=== PATIENT | female | born 1980 | race Caucasian/White ===

== ENCOUNTER → 2023-11-05 10:35 | Outpatient (CLI) | payer OTHER, SELFPAY ==
--- NOTE | 2023-11-05 10:49 | DI.RAD.S_ITS ---
PROCEDURE: XR CERVICAL SPINE 2V OR 3V INDICATIONS: PAIN IN RIGHT SHOULDER TECHNIQUE: 3 view(s) of the cervical spine were acquired. COMPARISON: None. FINDINGS: Bones: No fractures or dislocations to the T1 level. The lateral masses of C1 appear intact on the odontoid view. No suspicious bony lesions. Mild degenerative grade 1 anterior spondylolisthesis C3-4 Soft tissues: No prevertebral soft tissue swelling. IMPRESSION: Mild degenerative C3-4 anterior spondylolisthesis Approved by: Jeffrey Fernandez M.D. on 11/05/2023 at 19:15
--- NOTE | 2023-11-05 10:49 | DI.RAD.S_ITS ---
PROCEDURE: XR SHOULDER RT MIN 2V INDICATIONS: PAIN IN RIGHT SHOULDER TECHNIQUE: 3 views of the shoulder were acquired. COMPARISON: None. FINDINGS: Bones: No fractures or dislocations. No suspicious bony lesions. Visualized ribs appear intact. Soft tissues: No suspicious soft tissue calcifications. IMPRESSION: Normal right shoulder radiographs Approved by: Jeffrey Fernandez M.D. on 11/05/2023 at 19:16
== END ==
PROVIDERS: PCP Family Medicine; Referring Provider Internal Medicine Cardiovascular Disease; Visit Provider Internal Medicine Cardiovascular Disease
DX: M54.2 Cervicalgia (principal); M43.12 Spondylolisthesis, cervical region; M25.511 Pain in right shoulder
CPT/HCPCS: 72040; 73030